=== PATIENT | male | born 1955 | race Caucasian/White ===

== ENCOUNTER → 2016-08-04 | Day surgery (SDC) | payer BC ==
[~2016-08-04] MED LIST: Acetaminophen TAB* 325 MG PO PRN; Buffered Lidocaine 1% SYR 3ML* 3 ML/SYR SYRINGE INTRADERM ONE; Buffered Lidocaine 1% SYR 3ML* 3 ML/SYR SYRINGE ONE; Cyclopentolate 1% OPTH.SOL* 2 ML BTL ONE; Flurbiprofen 0.03% OPTH.SOL* 2.5 ML BTL ONE; Lidocaine 1% MPF* 2 ML VIAL ONE; Lidocaine 2% EPI 1:200000 MPF* 20 ML VIAL ONE; Midazolam* 1 MG/ML 2 ML VIAL (2 MG) ONE; Neomycin/Polymy/Dex OPTH.SUSP* MAXITROL 0.1% 5 ML ONE; Phenylephrine 2.5% OPTH.SOL* 2 ML BTL ONE; Povidone Iodine 5% OPTH* 30 ML BTL ONE; Proparacaine 0.5% OPHTH.SOL* 15 ML BTL ONE; acetaZOLAMIDE TAB* 250 MG ONE; fentaNYL* 50 MCG/ML 2 ML VIAL (100 MCG VIAL) ONE
[2016-08-04 08:23] VITALS: BP 103/66
--- NOTE | 2016-08-04 09:56 | OP ---
DATE OF OPERATION: 08/04/16 [facility] DATE OF : 51 SURGEON: Grover lAford MD PREOPERATIVE DIAGNOSIS: Cataract, right eye. POSTOPERATIVE DIAGNOSIS: Cataract, right eye. OPERATIVE PROCEDURE: Phacoemulsification right eye with IOL. DESCRIPTION OF PROCEDURE: The patient was brought to the operating room after being given 1/2% Alcaine with epinephrine drops in the preoperative area. The eye was prepped and draped in the usual sterile fashion. Sterile drape and eyelid speculum were placed. Again, topical 1/2% Alcaine with epinephrine was given. A paracentesis incision was made at the 9 o'clock position with the No.75 blade. Clear cornea incision 2.2 x 2.2-mm was created at the 12 o'clock position starting at the anterior limbus using the 2.2-mm keratome. The anterior chamber was irrigated with 0.4 mL of 1% non-preservative intracameral lidocaine and filled with DisCoVisc. A capsulorrhexis was completed using the cystotome and the Utrata forceps. Hydrodissection was performed with balanced salt solution. The lens nucleus was removed with the Phacoemulsification handpiece without incident. Cortex was removed with the irrigation-aspiration handpiece. The capsular bag was re-inflated using DisCoVisc and an [id number] 18.5 -diopter implant was inserted with the shooter. Then an eye stent was inserted at the 3 o'clock position using a shooter into the trabecular meshwork. The irrigation-aspiration handpiece was used to remove all residual DisCoVisc. The eye was refilled with balanced salt solution and the wound checked and found to be watertight. Topical Maxitrol drops were given. [id number]/[facility] #: [id number] MTDD
== END | disposition home or self-care (01) ==
LOC: OREAST 06:21
PROVIDERS: ATTEND Specialist
DX: H25.812 Combined forms of age-related cataract, left eye (principal); H40.1131 Primary open-angle glaucoma, bilateral, mild stage; F17.210 Nicotine dependence, cigarettes, uncomplicated
CPT/HCPCS: A9270-GY; C1783; J2250; J3010; V2632

== ENCOUNTER → 2016-08-11 | Day surgery (SDC) | payer BC ==
[~2016-08-11] MED LIST changes: -Acetaminophen TAB* 325 MG PO PRN; -fentaNYL* 50 MCG/ML 2 ML VIAL (100 MCG VIAL) ONE
[2016-08-11 09:53] VITALS: BP 106/63
--- NOTE | 2016-08-11 11:45 | OP ---
OPERATIVE NOTE: DATE OF OPERATION: 08/11/16 DATE OF : 51 SURGEON: Grover Alford M.D. PREOPERATIVE DIAGNOSIS: Cataract, left eye. POSTOPERATIVE DIAGNOSIS: Cataract, left eye. OPERATIVE PROCEDURE: Phacoemulsification, left eye, with IOL and iStent. DESCRIPTION OF PROCEDURE: The patient was brought to the operating room after being given 1/2% Alca ine with epinephrine drops in the preoperative area. The eye was prepped and draped in the usual st erile fashion. Sterile drape and eyelid speculum were placed. Again, topical 1/2% Alcaine with epi nephrine was given. A paracentesis incision was made at the 3 o'clock position with the No.75 blade . Clear cornea incision 2.2 x 2.2-mm was created at the 6 o'clock position starting at the anterior limbus using the 2.2-mm keratome. The anterior chamber was irrigated with 0.4 mL of 1% non-preserva tive intracameral lidocaine and filled with DisCoVisc. A capsulorrhexis was completed using the cys totome and the Utrata forceps. Hydrodissection was performed with balanced salt solution. The lens nucleus was removed with the Phacoemulsification handpiece without incident. Cortex was removed wit h the irrigation-aspiration handpiece. The capsular bag was re-inflated using DisCoVisc and an SN60 WF 20 implant was inserted with the shooter and followed by an iStent GTS-[id number] inserted into the tra becular meshwork with its shooter at the 9 o'clock position. The irrigation-aspiration handpiece wa s used to remove all residual DisCoVisc. The eye was refilled with balanced salt solution and the w ound checked and found to be watertight. Topical Maxitrol drops were given. [id number]/[facility] #: [id number]
== END | disposition home or self-care (01) ==
LOC: OREAST 07:04
PROVIDERS: ATTEND Specialist
DX: H25.812 Combined forms of age-related cataract, left eye (principal); H40.1131 Primary open-angle glaucoma, bilateral, mild stage; F17.200 Nicotine dependence, unspecified, uncomplicated
CPT/HCPCS: A9270-GY; C1783; J2250; V2632

== ENCOUNTER 2018-01-26 08:31 | Emergency (ER) | payer BC ==
--- OUTSIDE RECORDS SUMMARY | 2018-01-26 08:38 | XMS REPORT ---
:1955 External Reference #:[id number] [facility] [employer] Address [address] [place] [address] Phone [phone] Care Team Providers Name Role Phone Grover Perry M.D. Primary Care Physician Unavailable Payers Type Date Identification Numbers Payment Provider Subscriber Commercial Policy Number: [id number] [facility] Marybeth Mustafa PayID: [id number] [place] [id number] Problems Date Description Provider Status Onset: 03/01/2016 Combined form of senile cataract Grover Alford M.D. Active Onset: 03/01/2016 Primary open-angle glaucoma, mild Grover Alford M.D. Active stage Onset: 07/13/2016 Bilateral primary open angle glaucoma Grover Alford M.D. Active Onset: 08/05/2016 Bilateral primary open angle glaucoma Grover Alford M.D. Active Onset: 08/05/2016 Presence of intraocular lens Grover Alford M.D. 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 018 - drop Arleo, three M.D. 018 times a day for three days OD, then three times a day for three days OS. Only after procedu re. No Active Hx Unknown Medications 017 - 018 Prednisolone Hx Suspension 1% 15ml One Grover J. Acetate 016 - drop Arleo, twice a M.D. 017 day right eye, three times a day left eye Ciprofloxacin Hx Solution 0.3% 10ml One Grover J. HCL 016 - drop Arleo, three M.D. 017 times a day in the left eye Ketorolac Hx Solution 0.4% 5ml One Grover J. Tromethamine 016 - drop Arleo, twice a M.D. 017 day in the right eye, three times a day in the left eye Timolol Maleate Hx Solution 0.5% 10ml 1 drop Grover J. 016 - both Arleo, eyes M.D. 017 twice daily Brimonidine Hx Solution 0.15% 20ml 1 drop H40.11x1 Grover J. Tartrate 016 - both Arleo, eyes M.D. 017 twice a day No Active Hx Unknown Medications 016 - 016 Pred Forte Hx Suspension 1% 5ml One H40.11x1 Grover J. 016 - drop Arleo, three M.D. 016 times a day for three days OD, then three times a day for three days OS. Only after procedu re. Brimonidine Hx Solution 0.2% 30Day 1 drop H40.11x1 Grover J. Tartrate 016 - both Arleo, eyes M.D. 016 twice a day Vital Signs Date Vital Result Comment 08/08/2017 BP Systolic 144 mmHg BP Diastolic 84 mmHg Heart Rate 65 /min Respiratory Rate 16 /min 08/01/2017 BP Systolic 116 mmHg BP Diastolic 75 mmHg Heart Rate 78 /min Respiratory Rate 16 /min 03/22/2016 BP Systolic 112 mmHg BP Diastolic 66 mmHg Heart Rate 75 /min Respiratory Rate 16 /min 03/08/2016 BP Systolic 135 mmHg BP Diastolic 86 mmHg Heart Rate 79 /min Respiratory Rate 15 /min Results Description No Information Procedures Date CPT Code Description Status 08/08/2017 58497 Trabeculoplasty By Laser Surgery Completed 08/01/2017 21240 Trabeculoplasty By Laser Surgery Completed 07/29/2017 79022 Scanning Computerized Ophthalmic Diagnostic Imag Completed Posterior Seg On 07/29/2017 76119 Visual Field Exam Extended Completed 07/29/2017 09567 Est Patient Comprehensive Exam Completed 06/14/2017 29772 Patient No Show For Appt Completed 12/09/2016 91058 Est Patient Intermediate Exam Completed 08/11/2016 85278 Extracapsular Cataract Extraction W/Intraocular Lens Completed 08/11/2016 0191T I-Stent Aqueous Drainage Device Completed 08/04/2016 0191T I-Stent Aqueous Drainage Device Completed 08/04/2016 03958 Extracapsular Cataract Extraction W/Intraocular Lens Completed 07/13/2016 60834 Ophthalmic Biometry Completed 07/13/2016 28297 Ophthalmic Biometry Completed 03/22/2016 51732 Trabeculoplasty By Laser Surgery Completed 03/08/2016 44162 Trabeculoplasty By Laser Surgery Completed 03/01/2016 45227 Scanning Computerized Ophthalmic Diagnostic Imag Completed Posterior Seg On 03/01/2016 27317 Visual Field Exam Extended Completed 03/01/2016 69842 New Patient Comprehensive Exam Completed 03/01/2016 76995 Pachymetry Completed Encounters Type Date Location Provider CPT E/M Dx Office Visit 09/22/2017 Grover Alford MD, [place], [address] H40.1131 9:45a [place] Z96.1 Office Visit 07/13/2016 11:45a Grover Alford MD, [place], [address] H25.811 [place] H25.812 H40.1131 Office Visit 04/20/2016 10:45a Grover Alford MD, [place], [address] H40.11x1 [place] H25.811 H25.812 Plan of Care 01/23/2018 - Grover Alford M.D.H40.1131 Primary open-angle glaucoma, bilateral, mild stageComments:Smoking can increase the risk of developing or worsening any eye related disease, as well as affect your overall health. If you are a smoker, we strongly recommend that you quit.If you are not a smoker, we strongly recommend that you do not start. Your glaucoma is stable at this time.Your eye pressure is within an acceptable range, and your testing does not show any further deterioration at this time. Please continue your treatment.Follow up:6 Month Follow Up DFE/IOP OCT ON Visual Field 30-2 You can expect to have your eyes dilated at yournext visit. If Dr. Alford orders any additional testing, it may require extra time. We recommend thatyou bring sunglasses, as dilation drops often make you light sensitive until they wear off. We always recommend you bring someone to drive you home if you are uncomfortable driving with your eyes dilated. If you have any questions before your next visit, feel free to call our office at .z96.1 Presence of intraocular lensComments:The artificial lens implants in both eyes appear to be stable at this time.
[2018-01-26 08:44] VITALS: BP 131/87
--- NOTE | 2018-01-26 12:00 | UC ---
Mohan Calle Rebecca, scribed for Manolo Valdivia MD on 01/26/18 at 0854 . Back Pain HPI - HPI Summary HPI Summary: Pt is a 62 y/o M who presents to [facility] c/o R lumbar back pain and R knee pain. Reports that after driving to [place], he began experiencing R foot swelling. The swelling has since resolved, though he suspects he was walking differently than usual which he contributes to potentially causing the knee and back pain. Describes the knee pain as being located "under my kneecap" and and characterized as "like nerve things." On triage, pain is mild ranked 2/10, present at rest, aggravated by positioning, improved with standing. Denies any changes in urinary habits or decreased sensation. Is not on any medications and is active, especially during the summer. PMHx sciatica, on the other side and this current episode feels similar, though he previously did not have the knee pain. - History of Current Complaint Chief Complaint: UCBackPain Stated Complaint: R LEG PAIN/ R LOWER BACK PAIN Time Seen by Provider: 01/26/18 08:38 Hx Obtained From: Patient Onset/Duration: Still Present, Worse Since - Last night Severity Currently: Mild Pain Intensity: 2 Pain Scale Used: 0-10 Numeric Back Pain: Is Discrete @ - R lumbar back and R knee Aggravating Factor(s): Other - Position Alleviating Factor(s): Other - Standing Associated Signs And Symptoms: Positive: Swelling - R foot swelling - resolved - Allergies/Home Medications Allergies/Adverse Reactions: Allergies Allergy/AdvReac Type Severity Reaction Status Date / Time No Known Allergies Allergy Verified 01/26/18 08:44 PMH/Surg Hx/FS Hx/Imm Hx - Additional Past Medical History Additional PMH: PMHx: Cataract GI/ History: Other Other GI/ History: Hernia - Surgical History Surgical History: Yes Surgery Procedure, Year, and Place: INGUINAL HERNIA REPAIR-10 YEARS AGO. EYE SURGERY FOR GLAUCOMA- [id number] - Family History Known Family History: Positive: Other - Cataract (mother) - Social History Alcohol Use: Daily Alcohol Amount: 1 PER DAY Substance Use Type: None Smoking Status (MU): Heavy Every Day Tobacco Smoker Type: Cigarettes Amount Used/How Often: 1/2 PPD Length of Time of Smoking/Using Tobacco: since age 14 Have You Smoked in the Last Year: Yes Review of Systems Constitutional: Negative Skin: Negative Eyes: Negative ENT: Negative Respiratory: Negative Cardiovascular: Negative Gastrointestinal: Negative Genitourinary: Negative Motor: Negative Neurovascular: Negative Musculoskeletal: Other: - R lumbar back and R knee pain; R foot swelling ( resolved) Neurological: Negative Psychological: Negative All Other Systems Reviewed And Are Negative: Yes Physical Exam - Summary Physical Exam Summary: Appearance: Well appearing, no pain distress Skin: warm, dry, reflects adequate perfusion Head/face: normal Eyes: EOMI, MAXIMO ENT: normal Neck: supple, non-tender Respiratory: CTA, breath sounds present Cardiovascular: RRR, pulses symmetrical Musculoskeletal: No lower extremity edema, negative Orion's sign, symmetric diminished patellar reflexes, straight leg raise 30 degrees bilaterally with much greater sensitivity with the contralateral leg, normal saddle sensation, no CVA tenderness, no muscular tenderness in the back, normal gait Neuro: normal, sensory motor intact, A&Ox3 Triage Information Reviewed: Yes Vital Signs: Initial Vital Signs Temp 97.7 F 01/26/18 08:38 Pulse 78 01/26/18 08:38 Resp 16 01/26/18 08:38 BP 131/87 01/26/18 08:38 Pulse Ox 98 01/26/18 08:38 Vital Signs Reviewed: Yes Back Pain Course/Dx - Course Course Of Treatment: No lower extremity edema or pain. HEENT radiates from back to the knee. Seems radicular in nature. Patient is most comfortable standing upright. Discomfort with straight leg raise on the right. Neurologically intact without signs of cauda equina or conus medullaris syndrome. Treat symptomatically. - Differential Dx/Diagnosis Provider Diagnoses: Lumbar radiculopathy, lumbar back pain Discharge - Sign-Out/Discharge Documenting (check all that apply): Discharge/Admit/Transfer - Discharge - Discharge Plan Condition: Good Disposition: HOME Prescriptions: Metaxalone [Skelaxin] 800 mg PO QID PRN #15 tablet PRN Reason: muscle/back pain methylPREDNISolone [Medrol] 4 mg PO DAILY #1 tab.ds.pk Patient Education Materials: Lumbar Radiculopathy (ED), Lower Back Exercises ( ED) Referrals: Grover Perry MD [Primary Care Provider] - Additional Instructions: health care liaison may help. Back exercises as shown in instructions. Stay active. Ibuprofen as needed. Return if worse, numbness/weakness, new symptoms or other concerns. - Billing Disposition and Condition Condition: GOOD Disposition: Home The documentation as recorded by the Mohan bar Rebecca accurately reflects the service I personally performed and the decisions made by me, Manolo Valdivia MD.
== END 2018-01-26 09:16 | disposition home or self-care (01) ==
LOC: UCEAST 08:31
DX: M54.16 Radiculopathy, lumbar region (principal); M25.561 Pain in right knee; F17.210 Nicotine dependence, cigarettes, uncomplicated
CPT/HCPCS: 99212; G0463

== ENCOUNTER 2020-11-01 18:45 | Inpatient (IN) ==
[2020-11-01] MEDS ORDERED: NS 0.9% 1000 ml BAG 1,000 ML IV ONE (19:16)
[2020-11-01] MEDS ORDERED: Ondansetron 4 mg VIAL 2 MG/ML 2 ml VIAL IV ONE (19:16)
[2020-11-01 19:56] LABS: Hematocrit 42 % (42-52); Hemoglobin 14.6 g/dL (14.0-18.0); Mean Corpuscular HGB Conc 35 g/dL (31-36); Mean Corpuscular Hemoglobin 30 pg (27-31); Mean Corpuscular Volume 88 fL (80-94); Mean Platelet Volume 7.6 fL (7.4-10.4); Platelet Count 237 10^3/uL (150-450); Red Blood Count 4.83 10^6 /uL (4.18-5.48); Red Cell Distribution Width 14 % (10-15); White Blood Count 7.8 10^3/uL (3.5-10.8)
[2020-11-01 20:01] LABS: INR 1.89 (0.82-1.09)
[2020-11-01 20:12] LABS: ALT 14 U/L (7-52); AST 11 U/L (13-39); Albumin 3.5 g/dL (3.2-5.2); Albumin/Globulin Ratio 0.9 (1-3); Alkaline Phosphatase 105 U/L (34-104); Anion Gap 13 mmol/L (2-11); BUN/Creatinine Ratio 27.8 (8-20); Blood Urea Nitrogen 49 mg/dL (6-24); C Reactive Protein 297.74 mg/L (<8.01); CO2 Carbon Dioxide 25 mmol/L (22-32); Calcium 9.5 mg/dL (8.6-10.3); Chloride 90 mmol/L (101-111); EGFR Non-African American 38.8 (>60); Globulin 3.8 g/dL (2-4); Glucose 177 mg/dL (70-100); Lipase < 10 U/L (11.0-82.0); Sodium 128 mmol/L (135-145); Total Protein 7.3 g/dL (6.4-8.9)
[2020-11-01 20:43] LABS: ABS Lymphocytes 0.3 10^3/ul (1.0-4.8); ABS Monocytes 0.3 10^3/ul (0-0.8); ABS Neutrophils 7.2 10^3/ul (1.5-7.7); Lymphocyte % 3.9 %
[2020-11-01] MEDS ORDERED: Iodixanol (CONTRAST) 320 MG/ML 100 ML SDV IV ONE (21:06)
[2020-11-01] MEDS ORDERED: Piperacillin/Tazobac ADVAN 3.375 GM in NS 0.9% 100 ml BAG 100 ML IV ONE (22:51)
[2020-11-01] MEDS ORDERED: Morphine 2 MG/ML SYRINGE IV ONE (23:00)
[2020-11-01] MEDS ORDERED: fentaNYL 250 mcg/5 ml 50 MCG/ML 5 ml VIAL (250 MCG) ONE (23:42)
[2020-11-01] MEDS ORDERED: Lidocaine 2% PF 5 ML VIAL ONE (23:42)
[2020-11-01] MEDS ORDERED: Rocuronium 50 mg VIAL 10 mg/ml 5 ml VIAL (50 mg) ONE (23:42)
[2020-11-01] MEDS ORDERED: Midazolam 2 mg/2 ml VIAL 1 mg/ml 2 ml VIAL (2 mg) ONE (23:42)
[2020-11-01] MEDS ORDERED: Propofol 10 MG/ML 20 ML BTL ONE (23:42)
[2020-11-02] MEDS ORDERED: EPHEDrine (Pressors) 50 MG/ML VIAL ONE (01:01)
[2020-11-02] MEDS ORDERED: diPHENhydraMINE IV 50 MG/ML 1 ml VIAL (BENADRYL) IV PRN (01:29)
[2020-11-02] MEDS ORDERED: Naloxone 0.4 mg VIAL 0.4 mg/ml 1 ml VIAL IV PRN (01:29)
[2020-11-02] MEDS ORDERED: fentaNYL 100 mcg/2 ml 50 MCG/ML VIAL IV PRN (01:29)
[2020-11-02] MEDS ORDERED: Dexamethasone IV 4 MG/ML VIAL 1 ml VIAL ONE ×2 (01:34→02:08)
[2020-11-02] MEDS ORDERED: Ondansetron 4 mg VIAL 2 MG/ML 2 ml VIAL ONE (01:34)
[2020-11-02] MEDS ORDERED: Rocuronium 50 mg VIAL 10 mg/ml 5 ml VIAL (50 mg) ONE (01:47)
[2020-11-02] MEDS ORDERED: Bupivacaine 0.5% SDV PF 30ML VIAL ONE (02:08)
[2020-11-02] MEDS ORDERED: Ondansetron 4 mg VIAL 2 MG/ML 2 ml VIAL IV PRN (04:03)
[2020-11-02] MEDS ORDERED: Naloxone 0.4 mg VIAL 0.4 mg/ml 1 ml VIAL IV PUSH PRN (04:14)
[2020-11-02] MEDS ORDERED: HYDROmorphone PCA 20 MG/20 ML PCA.SYRING PCA SCH (05:00)
[2020-11-02] MEDS ORDERED: D5W 1/2 NS 1000 ml BAG 1,000 ML IV SCH (05:00)
[2020-11-02] MEDS ORDERED: ZOSYN 3.375 GM x ONE DOSE over 30 miuntes IV (05:00)
[2020-11-02] MEDS: Acetaminophen IV 1 GM/100ML 1,000 MG/100 ML VIAL IVPB SCH ×3 (07:58→23:11)
[2020-11-02] MEDS ORDERED: Folic Acid 1 mg SYRINGE 0.2 ML SYRINGE IV SCH (09:00)
[2020-11-02] MEDS: Folic Acid IV 1 MG in NS 0.9% 50 ML 50 ML IVPB SCH (09:08)
[2020-11-02] MEDS ORDERED: Lactated Ringers 1000 ml BAG 1,000 ML IV ONE (10:42)
[2020-11-02 11:00] LABS: Hematocrit 39 % (42-52)
[2020-11-02] MEDS: Piperacillin/Tazobactam VIAL 3.375 GM in NS 0.9% 100 ml BAG 100 ML IVPB SCH ×2 (12:00→19:13)
[2020-11-02] MEDS ORDERED: LACTATED RINGERS 1000 ML BAG IV ONE (15:10)
[2020-11-02] MEDS: NS 0.9% 1000 ml BAG 1,000 ML IV SCH ×2 (15:20→21:12)
[2020-11-02 15:29] LABS: BUN/Creatinine Ratio 25.2 (8-20); Calcium 8.1 mg/dL (8.6-10.3); EGFR African American 35.9 (>60); EGFR Non-African American 29.7 (>60); Potassium 4.4 mmol/L (3.5-5.0)
[2020-11-02] MEDS ORDERED: Enoxaparin 80 MG/0.8 ML SYR SUBCUT SCH (21:00)
[2020-11-03] MEDS: Piperacillin/Tazobactam VIAL 3.375 GM in NS 0.9% 100 ml BAG 100 ML IVPB SCH ×3 (03:23→18:09)
[2020-11-03 06:06] LABS: ABS Lymphocytes 0.3 10^3/ul (1.0-4.8); ABS Monocytes 0.2 10^3/ul (0-0.8); Hematocrit 32 % (42-52); Hemoglobin 11.1 g/dL (14.0-18.0); Lymphocyte % 3.9 %; Mean Corpuscular HGB Conc 34 g/dL (31-36); Mean Corpuscular Hemoglobin 30 pg (27-31); Mean Corpuscular Volume 88 fL (80-94); Mean Platelet Volume 7.6 fL (7.4-10.4); Platelet Count 136 10^3/uL (150-450); Red Blood Count 3.68 10^6 /uL (4.18-5.48); Red Cell Distribution Width 15 % (10-15); White Blood Count 6.4 10^3/uL (3.5-10.8)
[2020-11-03 06:19] LABS: BUN/Creatinine Ratio 29.3 (8-20); Calcium 7.8 mg/dL (8.6-10.3); EGFR African American 47.6 (>60); EGFR Non-African American 39.3 (>60); Potassium 4.1 mmol/L (3.5-5.0)
[2020-11-03] MEDS: Metoprolol Tartrate 5 mg VIAL 5 ml VIAL (1 mg/ml) IV SCH ×3 (08:18→20:13)
[2020-11-03] MEDS: NS 0.9% 1000 ml BAG 1,000 ML IV SCH (08:27)
[2020-11-03] MEDS: Folic Acid IV 1 MG in NS 0.9% 50 ML 50 ML IVPB SCH (09:10)
[2020-11-03] MEDS ORDERED: Digoxin IV 0.5 MG/2 ML AMP (0.25 MG/ML) IV SLOW PU ONE ×2 (11:22→16:00)
[2020-11-03] MEDS: Heparin 5000 UNITS/ML 1 mL VIAL SUBCUT SCH ×2 (14:55→22:05)
[2020-11-03] MEDS ORDERED: Lactated Ringers 1000 ml BAG 1,000 ML IV SCH (19:00)
[2020-11-04] MEDS: Piperacillin/Tazobactam VIAL 3.375 GM in NS 0.9% 100 ml BAG 100 ML IVPB SCH ×3 (03:12→17:52)
[2020-11-04] MEDS: Metoprolol Tartrate 5 mg VIAL 5 ml VIAL (1 mg/ml) IV SCH ×4 (03:14→20:56)
[2020-11-04 05:23] LABS: ABS Basophils 0.1 10^3/ul (0-0.2); ABS Lymphocytes 0.4 10^3/ul (1.0-4.8); ABS Monocytes 0.2 10^3/ul (0-0.8); ABS Neutrophils 4.7 10^3/ul (1.5-7.7); Eosinophil % 0.1 %; Hematocrit 32 % (42-52); Hemoglobin 10.6 g/dL (14.0-18.0); Lymphocyte % 8.1 %; Mean Corpuscular HGB Conc 34 g/dL (31-36); Mean Corpuscular Hemoglobin 30 pg (27-31); Mean Corpuscular Volume 89 fL (80-94); Mean Platelet Volume 7.5 fL (7.4-10.4); Platelet Count 127 10^3/uL (150-450); Red Blood Count 3.55 10^6 /uL (4.18-5.48); Red Cell Distribution Width 14 % (10-15); White Blood Count 5.4 10^3/uL (3.5-10.8)
[2020-11-04 05:46] LABS: BUN/Creatinine Ratio 32.1 (8-20); EGFR African American 62.7 (>60); EGFR Non-African American 51.8 (>60); Potassium 3.7 mmol/L (3.5-5.0)
[2020-11-04] MEDS: Heparin 5000 UNITS/ML 1 mL VIAL SUBCUT SCH (06:20)
[2020-11-04] MEDS: D5NS 0.9% 1000 ml BAG 1,000 ML IV SCH (07:53)
[2020-11-04] MEDS: Folic Acid IV 1 MG in NS 0.9% 50 ML 50 ML IVPB SCH (08:55)
[2020-11-04] MEDS: Enoxaparin 80 MG/0.8 ML SYR SUBCUT SCH ×2 (10:48→22:34)
[2020-11-04] MEDS ORDERED: oxyCODONE/Acetamin 5/325 mg TAB PO PRN ×2 (15:42→15:44)
[2020-11-04] MEDS ORDERED: HYDROmorphone 0.5 MG/0.5 ML SYRINGE IV SLOW PU PRN (15:44)
[2020-11-05] MEDS: Piperacillin/Tazobactam VIAL 3.375 GM in NS 0.9% 100 ml BAG 100 ML IVPB SCH ×3 (02:41→18:48)
[2020-11-05] MEDS: Metoprolol Tartrate 5 mg VIAL 5 ml VIAL (1 mg/ml) IV SCH ×2 (02:44→07:45)
[2020-11-05] MEDS: D5NS 0.9% 1000 ml BAG 1,000 ML IV SCH (05:28)
[2020-11-05 07:22] LABS: ABS Lymphocytes 0.5 10^3/ul (1.0-4.8); ABS Monocytes 0.3 10^3/ul (0-0.8); ABS Neutrophils 2.7 10^3/ul (1.5-7.7); Eosinophil % 1.3 %; Hematocrit 30 % (42-52); Hemoglobin 9.9 g/dL (14.0-18.0); Lymphocyte % 13.4 %; Mean Corpuscular HGB Conc 34 g/dL (31-36); Mean Corpuscular Hemoglobin 30 pg (27-31); Mean Corpuscular Volume 89 fL (80-94); Mean Platelet Volume 7.5 fL (7.4-10.4); Platelet Count 125 10^3/uL (150-450); Red Blood Count 3.33 10^6 /uL (4.18-5.48); Red Cell Distribution Width 14 % (10-15); White Blood Count 3.6 10^3/uL (3.5-10.8)
[2020-11-05 07:37] LABS: BUN/Creatinine Ratio 32.2 (8-20); Calcium 7.7 mg/dL (8.6-10.3); EGFR African American 72.4 (>60); EGFR Non-African American 59.8 (>60); Magnesium 1.9 mg/dL (1.9-2.7); Potassium 3.5 mmol/L (3.5-5.0)
[2020-11-05] MEDS ORDERED: Furosemide 20 mg/2 ml IV VIAL IV ONE (09:19)
[2020-11-05] MEDS ORDERED: Metoprolol Tartrate 5 mg VIAL 5 ml VIAL (1 mg/ml) IV PRN (09:21)
[2020-11-05] MEDS ORDERED: Potassium Chlor 10 meq TAB PO ONE (09:35)
[2020-11-05] MEDS: Folic Acid IV 1 MG in NS 0.9% 50 ML 50 ML IVPB SCH (09:58)
[2020-11-05] MEDS: Enoxaparin 80 MG/0.8 ML SYR SUBCUT SCH ×2 (10:18→22:24)
[2020-11-06] MEDS: Piperacillin/Tazobactam VIAL 3.375 GM in NS 0.9% 100 ml BAG 100 ML IVPB SCH ×3 (02:23→18:48)
[2020-11-06] MEDS: Enoxaparin 80 MG/0.8 ML SYR SUBCUT SCH ×2 (12:02→21:20)
[2020-11-07] MEDS: Piperacillin/Tazobactam VIAL 3.375 GM in NS 0.9% 100 ml BAG 100 ML IVPB SCH ×3 (02:39→18:10)
[2020-11-07 07:39] LABS: Hematocrit 31 % (42-52); Hemoglobin 10.5 g/dL (14.0-18.0); Mean Corpuscular HGB Conc 34 g/dL (31-36); Mean Corpuscular Hemoglobin 30 pg (27-31); Mean Corpuscular Volume 89 fL (80-94); Mean Platelet Volume 7.5 fL (7.4-10.4); Platelet Count 219 10^3/uL (150-450); Red Blood Count 3.49 10^6 /uL (4.18-5.48); Red Cell Distribution Width 14 % (10-15); White Blood Count 4.9 10^3/uL (3.5-10.8)
[2020-11-07 07:47] LABS: ABS Lymphocytes 0.8 10^3/ul (1.0-4.8); ABS Monocytes 0.5 10^3/ul (0-0.8); ABS Neutrophils 3.6 10^3/ul (1.5-7.7); BUN/Creatinine Ratio 30.1 (8-20); Calcium 7.5 mg/dL (8.6-10.3); EGFR African American 87.2 (>60); Eosinophil % 0.8 %; Lymphocyte % 15.7 %; Potassium 3.1 mmol/L (3.5-5.0)
[2020-11-07] MEDS: Potassium Chlor 20 meq TAB.ER PO SCH ×2 (10:28→20:41)
[2020-11-08] MEDS: Piperacillin/Tazobactam VIAL 3.375 GM in NS 0.9% 100 ml BAG 100 ML IVPB SCH (02:55)
[2020-11-08 05:06] LABS: Hematocrit 30 % (42-52); Hemoglobin 10.4 g/dL (14.0-18.0); Mean Corpuscular HGB Conc 35 g/dL (31-36); Mean Corpuscular Hemoglobin 30 pg (27-31); Mean Corpuscular Volume 88 fL (80-94); Mean Platelet Volume 7.4 fL (7.4-10.4); Platelet Count 262 10^3/uL (150-450); Red Blood Count 3.42 10^6 /uL (4.18-5.48); Red Cell Distribution Width 14 % (10-15); White Blood Count 6.4 10^3/uL (3.5-10.8)
[2020-11-08 05:22] LABS: Calcium 7.6 mg/dL (8.6-10.3); EGFR African American 86.2 (>60); EGFR Non-African American 71.2 (>60); Potassium 3.3 mmol/L (3.5-5.0)
[2020-11-08 06:37] LABS: ABS Lymphocytes 0.8 10^3/ul (1.0-4.8); ABS Monocytes 0.6 10^3/ul (0-0.8); ABS Neutrophils 4.9 10^3/ul (1.5-7.7); Eosinophil % 0.7 %; Lymphocyte % 13.1 %
[2020-11-08 07:38] VITALS: BP 136/64
== END 2020-11-08 11:50 | disposition home health service (06) | DRG 330 ==
LOC: ED 18:45 → SSU 11-02 04:03
PROVIDERS: ADMIT Surgery Surgical Critical Care; ATTEND Surgery Surgical Critical Care

== ENCOUNTER 2021-05-25 05:47 | Inpatient (IN) ==
[2021-05-25] MEDS ORDERED: Buffered Lidocaine 1% SYRIN 1 ml INTRADERM ONE (06:00)
[2021-05-25] MEDS ORDERED: Lactated Ringers 1000 ml BAG 1,000 ML IV SCH (06:00)
[2021-05-25] MEDS ORDERED: Heparin 5000 UNITS/ML 1 mL VIAL ONE (06:09)
[2021-05-25] MEDS ORDERED: ceFOXitin 2 GM IVPREMIX 2 GM/50 ML BAG ONE (06:09)
[2021-05-25] MEDS ORDERED: Midazolam 2 mg/2 ml VIAL 1 mg/ml 2 ml VIAL (2 mg) ONE (07:00)
[2021-05-25] MEDS ORDERED: fentaNYL 250 mcg/5 ml 50 MCG/ML 5 ml VIAL (250 MCG) ONE (07:00)
[2021-05-25] MEDS ORDERED: Dexamethasone IV 4 MG/ML VIAL 1 ml VIAL ONE (07:00)
[2021-05-25] MEDS ORDERED: Ondansetron 4 mg VIAL 2 MG/ML 2 ml VIAL ONE (07:00)
[2021-05-25] MEDS ORDERED: Rocuronium 50 mg VIAL 10 mg/ml 5 ml VIAL (50 mg) ONE ×4 (07:00→15:17)
[2021-05-25] MEDS ORDERED: Lidocaine 2% PF 5 ML VIAL ONE (07:00)
[2021-05-25] MEDS ORDERED: Propofol 10 MG/ML 20 ML BTL ONE (07:00)
[2021-05-25] MEDS ORDERED: Bupivacaine 0.5% SDV PF 30ML VIAL ONE (07:09)
[2021-05-25] MEDS ORDERED: Phenylephrine 40 mcg/mL 10mL (400mcg) SYRINGE ONE ×2 (08:48)
[2021-05-25] MEDS ORDERED: Ertapenem 1 GM in NS 0.9% 50 ML IVPB ONE (09:00)
[2021-05-25] MEDS ORDERED: Phenylephrine IV 10 MG/ML 1 ml VIAL ONE (10:07)
[2021-05-25] MEDS ORDERED: Ondansetron 4 mg VIAL 2 MG/ML 2 ml VIAL IV PRN ×2 (10:20→16:21)
[2021-05-25] MEDS ORDERED: DiMENhydriNATE IV 50 mg/ml 1 ml VIAL IV PUSH PRN (10:20)
[2021-05-25] MEDS ORDERED: fentaNYL 100 mcg/2 ml 50 MCG/ML VIAL IV PRN (10:20)
[2021-05-25] MEDS ORDERED: Naloxone 0.4 mg VIAL 0.4 mg/ml 1 ml VIAL IV PRN (10:20)
[2021-05-25] MEDS ORDERED: Acetaminophen IV 1 GM/100ML 100 ML IV ONE (15:49)
[2021-05-25] MEDS ORDERED: EPHEDrine (Pressors) 50 MG/ML VIAL ONE (16:05)
[2021-05-25] MEDS ORDERED: oxyCODONE/Acetamin 5/325 mg TAB PO PRN (16:21)
[2021-05-25] MEDS ORDERED: HYDROmorphone 0.5 MG/0.5 ML SYRINGE IV SLOW PU PRN (16:21)
[2021-05-25] MEDS ORDERED: HYDROmorphone 1 MG/1 ML SYRINGE ONE (16:47)
[2021-05-25] MEDS: HYDROmorphone 1 MG/1 ML SYRINGE IV PRN ×4 (16:48→17:20)
[2021-05-25] MEDS: Lactated Ringers 1000 ml BAG 1,000 ML IV SCH (18:20)
[2021-05-26] MEDS: Lactated Ringers 1000 ml BAG 1,000 ML IV SCH (02:21)
[2021-05-26 06:30] LABS: ABS Lymphocytes 0.7 10^3/ul (1.0-4.8); ABS Monocytes 0.8 10^3/ul (0-0.8); ABS Neutrophils 8.6 10^3/ul (1.5-7.7); Hematocrit 32 % (42-52); Lymphocyte % 7.3 %; Mean Corpuscular HGB Conc 34 g/dL (31-36); Mean Corpuscular Hemoglobin 31 pg (27-31); Mean Corpuscular Volume 92 fL (80-94); Mean Platelet Volume 7.4 fL (7.4-10.4); Platelet Count 187 10^3/uL (150-450); Red Blood Count 3.52 10^6 /uL (4.18-5.48); Red Cell Distribution Width 15 % (10-15); White Blood Count 10.1 10^3/uL (3.5-10.8)
[2021-05-26 06:42] LABS: Calcium 8.3 mg/dL (8.6-10.3); Magnesium 1.7 mg/dL (1.9-2.7); Potassium 4.1 mmol/L (3.5-5.0)
[2021-05-26] MEDS ORDERED: Magnesium Sulfate 2 gm BAG 2 GM/50 ML BAG IVPB ONE (09:00)
[2021-05-26] MEDS: Enoxaparin 40 MG/0.4 ML SYR SUBCUT SCH (09:33)
[2021-05-27 06:36] LABS: ABS Lymphocytes 0.7 10^3/ul (1.0-4.8); ABS Monocytes 0.6 10^3/ul (0-0.8); ABS Neutrophils 5.9 10^3/ul (1.5-7.7); Eosinophil % 0.7 %; Hematocrit 31 % (42-52); Hemoglobin 10.8 g/dL (14.0-18.0); Lymphocyte % 9.4 %; Mean Corpuscular HGB Conc 35 g/dL (31-36); Mean Corpuscular Hemoglobin 31 pg (27-31); Mean Corpuscular Volume 90 fL (80-94); Mean Platelet Volume 7.4 fL (7.4-10.4); Platelet Count 165 10^3/uL (150-450); Red Blood Count 3.45 10^6 /uL (4.18-5.48); Red Cell Distribution Width 15 % (10-15); White Blood Count 7.2 10^3/uL (3.5-10.8)
[2021-05-27 07:13] LABS: Calcium 8.5 mg/dL (8.6-10.3); Magnesium 1.9 mg/dL (1.9-2.7); Potassium 3.7 mmol/L (3.5-5.0)
[2021-05-27] MEDS: Enoxaparin 40 MG/0.4 ML SYR SUBCUT SCH (08:19)
[2021-05-28 06:52] LABS: Calcium 8.9 mg/dL (8.6-10.3); Magnesium 1.9 mg/dL (1.9-2.7); Potassium 3.8 mmol/L (3.5-5.0)
[2021-05-28] MEDS: Enoxaparin 40 MG/0.4 ML SYR SUBCUT SCH (08:50)
[2021-05-28] MEDS ORDERED: Potassium Chlor 20 meq TAB.ER PO ONE (14:07)
[2021-05-29] MEDS: Enoxaparin 40 MG/0.4 ML SYR SUBCUT SCH (08:37)
[2021-05-29 11:42] VITALS: BP 117/73
== END 2021-05-29 15:00 | disposition home or self-care (01) | DRG 331 ==
LOC: AA 05:47 → SSU 17:56
PROVIDERS: ADMIT Surgery Surgical Critical Care; ATTEND Surgery Surgical Critical Care